=== PATIENT | male | born 1955 | race American Indian/Alaskan Native ===

== ENCOUNTER 2017-02-11 08:43 | Emergency (ER) | payer MEDICARE ==
[2017-02-11 09:01] VITALS: BP 144/73
--- NOTE | 2017-02-11 10:53 | Emergency Department Report ---
HPI - General Chief Complaint: Allergic Reaction Time Seen by Provider: 02/11/17 10:49 - HPI HPI: 62-year-old male past medical history hypertension, DVT presents with complaint of eye itching and facial itching for 3 days. ED Past Medical Hx - Past Medical History Previous Medical History?: Yes Hx Hypertension: Yes (4YRS) Hx Arthritis: Yes (HANDS) Hx HIV: No - Surgical History Past Surgical History?: Yes Additional Surgical History: Heart surgery from left rib area, Left leg surgery to remove a blood clot - Social History Smoking Status: Former Smoker Substance Use Type: Prescribed, Other - Medications Home Medications: Home Medications Medication Instructions Recorded Confirmed Last Taken Type Allopurinol [Zyloprim] 100 mg PO QDAY 12/14/14 03/10/16 03/03/16 21:00 History Atorvastatin [Lipitor Tab] 40 mg PO DAILY 12/14/14 03/10/16 03/03/16 21:00 History Clopidogrel [Plavix] 75 mg PO QDAY 12/14/14 03/10/16 03/04/16 History Gabapentin [Neurontin] 600 mg PO Q8H 12/14/14 03/10/16 03/03/16 21:00 History Hydrochlorothiazide [Hctz] 25 mg PO QDAY 12/14/14 03/10/16 Unknown History Losartan/Hydrochlorothiazide 1 each PO DAILY 12/14/14 03/10/16 03/04/16 08:00 History [Hyzaar 100-25 Tablet] Metoprolol [Lopressor] 100 mg PO BID 12/14/14 03/10/16 03/04/16 08:00 History ED Review of Systems ROS: Stated complaint: FACIAL SWELLING Other details as noted in HPI Physical Exam - Physical Exam Vital Signs: Vital Signs 02/11/17 08:54 Temperature 97.5 F L Pulse Rate 48 L Respiratory 20 Rate Blood Pressure 144/73 O2 Sat by Pulse 99 Oximetry ED Course Vital Signs 02/11/17 08:54 Temperature 97.5 F L Pulse Rate 48 L Respiratory 20 Rate Blood Pressure 144/73 O2 Sat by Pulse 99 Oximetry Critical care attestation.: If time is entered above; I have spent that time in minutes in the direct care of this critically ill patient, excluding procedure time. ED Disposition Condition: Stable Referrals: PRIMARY CARE, [Primary Care Provider] - 3-5 Days
[2017-02-11] MEDS ORDERED: PEPCID PO ONE (11:03)
[2017-02-11] MEDS ORDERED: BENADRYL PO ONE (11:04)
[2017-02-11] MEDS ORDERED: DELTASONE PO ONE (11:04)
== END 2017-02-11 12:14 | disposition home or self-care (01) ==
LOC: ED 08:43
DX: T78.49XA Other allergy, initial encounter (principal); X58.XXXA Exposure to other specified factors, initial encounter; I10 Essential (primary) hypertension; M19.90 Unspecified osteoarthritis, unspecified site; Z87.891 Personal history of nicotine dependence
CPT/HCPCS: 99282; J7512

== ENCOUNTER 2018-02-18 08:52 | Outpatient (CLI) | payer MEDICARE ==
[2018-02-18 09:38] LABS: Blood Urea Nitrogen 15 mg/dL (9-20)
--- NOTE | 2018-02-18 14:00 | Cat Scan Report ---
CT CHEST WITH CONTRAST: HISTORY: Malignant neoplasm of prostate. COMPARISON: none. TECHNIQUE: Helical CT in 1.25mm intervals following IV contrast. Sagittal and coronal reformatted images. FINDINGS: Thyroid gland: Normal. Tracheobronchial tree: Normal. Esophagus: Normal. Heart: Normal. Pericardium: Normal. Mediastinum: No mediastinal mass or adenopathy. There is mild fusiform aneurysmal dilatation of the descending aortic arch measuring up to 4.2 cm in diameter. No dissection is appreciated the central pulmonary arteries are within normal limits. Lung Anne: Unremarkable. No evidence for pulmonary mass or infiltrate. Pleural Spaces: Normal. Musculoskeletal: Mild thoracic spondylosis. No evidence for fracture or of suspicious bony lesion. 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 No evidence for metastatic disease or acute process in the chest.
--- NOTE | 2018-02-18 14:18 | Cat Scan Report ---
CT ABDOMEN PELVIS WITH CONTRAST: HISTORY: Malignant neoplasm of prostate. COMPARISON: PET/CT dated 09/08/13. TECHNIQUE: Helical CT in 1.25mm intervals following IV contrast. Sagittal and coronal reconstructions. FINDINGS: Liver: Normal. Biliary system: Normal. Pancreas: Normal. Spleen: Normal. Kidneys/ureters/bladder: The kidneys are normal size, contour and position. There is a few scattered simple cysts in both kidneys most of which are tiny. The largest cyst measures 3.3 cm near the superior pole of the right kidney. The ureters and bladder are unremarkable. Radiotherapy beads are identified in the prostate bed. Adrenal glands: Normal. Aorta: Moderate atherosclerotic disease is identified in the aorta. There is well-defined soft tissue density surrounding the aorta and parts of the IVC in the retroperitoneum. This is unchanged since 2014. The etiology of this is unclear although retroperitoneal fibrosis could be considered. There is severe atherosclerotic disease in the bilateral iliac systems and external iliac stents are present bilaterally. Stenosis of the distal external iliac arteries is suspected. Intestines: Normal. Appendix: Normal. Pelvic viscera: Normal. Ascites: None. Adenopathy: None. Musculoskeletal: Intact. Moderate thoracolumbar spondylosis is noted. No suspicious bony lesion is appreciated. IMPRESSION: No evidence for metastatic disease to the abdomen or pelvis. Chronic findings as outlined above.
--- NOTE | 2018-02-18 14:20 | Nuclear Medicine Report ---
BONE SCAN: History: Malignant neoplasm of prostate. Comparison: CT chest abdomen pelvis with contrast performed the same day. After injection of isotope, gamma camera imaging of the bony system was done. Mild degenerative uptake is noted in the bilateral shoulders, sternoclavicular joints, elbows, knees and spine. There is a solitary focus of increased radiotracer uptake overlying the distal left fibula approximately 10 cm from the ankle joint. This may be traumatic in nature. Consider correlation with x-ray. No abnormal uptake to suggest a metastatic process is identified. IMPRESSION: Negative bone scan for malignancy. Degenerative changes. Focal area of abnormal uptake overlying the left fibula which may be posttraumatic in nature. See above.
== END 2018-02-18 08:53 | disposition home or self-care (01) ==
LOC: NM 08:52
PROVIDERS: ATTEND Internal Medicine Hematology & Oncology
DX: N28.1 Cyst of kidney, acquired (principal); I25.10 Atherosclerotic heart disease of native coronary artery without angina pectoris; M47.895 Other spondylosis, thoracolumbar region; Z87.891 Personal history of nicotine dependence
CPT/HCPCS: 36415; 71260; 74177; 78306; 82565; 84520; A9503; Q9967

== ENCOUNTER 2018-11-10 07:44 | Outpatient (CLI) | payer MEDICARE ==
[2018-11-10 08:29] LABS: Blood Urea Nitrogen 9 mg/dL (9-20)
--- NOTE | 2018-11-10 22:48 | Cat Scan Report ---
PROCEDURE: CT ANGIO ABD/FEMORAL ABD AORTA TECHNIQUE: Computerized axial tomographic angiography of the abdomen and pelvis was performed after the IV injection of iodinated nonionic contrast. The image data was postprocessed using 2-dimensional multiplanar reformatted (MPR) and 3-dimensional (MIP and/or volume rendered) techniques. CT DOSE LENGTH PRODUCT: 2514.1 mGycm HISTORY: ABDOMINAL AOrtic aneurysm COMPARISONS: None . FINDINGS: Abdominal aorta is normal in caliber. There is no aneurysm or dissection. There is periaortic soft ti ssue density extending along the distal abdominal aorta to the iliac branches. This is nonspecific. T here is no evidence of active extravasation. Mesenteric arterial branches are patent. There is a stent in the left external iliac artery. 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 The deep femoral artery is patent stent provides reconstitution of t he left popliteal and infrapopliteal arteries. The right superficial femoral artery is occluded. The deep femoral artery is patent and provides reconstitution of the right popliteal and infrapopliteal a rteries. The liver, gallbladder, pancreas, spleen are unremarkable. There is a 3.7 cm cyst in the upper pole o f the right kidney. There is no bowel abnormality. There are radium seeds in the prostate. There is no acute bony abnormality. IMPRESSION: Abdominal aorta is normal in caliber. There is no aneurysm or dissection. There is periaortic soft tissue density extending along the distal abdominal aorta to the iliac branc hes. This is nonspecific. Possibilities include mass or hematoma. There is no evidence of active extr avasation. Mesenteric arterial branches are patent. There is a stent in the left external iliac artery. 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 The left deep femoral artery is patent stent provides reconstitution of the left popliteal and infrapopliteal arteries. The right superficial femoral artery is occluded. The right deep femoral artery is patent and provide s reconstitution of the right popliteal and infrapopliteal arteries. This document is electronically signed by Sonny Morris MD., Nov 10 2018 10:46:14 PM ET
== END 2018-11-10 07:45 | disposition home or self-care (01) ==
LOC: CT 07:44
PROVIDERS: ATTEND Nurse Practitioner Family
DX: I71.4 Abdominal aortic aneurysm, without rupture (principal); I70.213 Atherosclerosis of native arteries of extremities with intermittent claudication, bilateral legs; I65.29 Occlusion and stenosis of unspecified carotid artery; I71.2 Thoracic aortic aneurysm, without rupture; D48.7 Neoplasm of uncertain behavior of other specified sites; E78.00 Pure hypercholesterolemia, unspecified; I10 Essential (primary) hypertension
CPT/HCPCS: 36415; 75635; 82565; 84520; Q9967

== ENCOUNTER 2019-07-28 10:55 | Outpatient (CLI) | payer MEDICARE ==
--- NOTE | 2019-07-28 11:51 | XRay Report ---
LEFT KNEE 3 VIEWS INDICATION: PAIN. COMPARISON: None. IMPRESSION: Borderline bone mineralization. A bony protuberance measuring 2.9 x 4.2 cm projects from the distal lateral femoral metaphysis. This is consistent with an osteochondroma. The bony structure s are intact with no evidence for fracture or significant joint pathology. Trace joint effusion is n oted on the lateral image. Multiple surgical clips are noted in the medial soft tissues suggesting ve nous harvest. Signer Name: Reece Hidalgo Jr, MD Signed: 07/28/2019 11:47 AM Workstation Name: [id number]
== END 2019-07-28 10:56 | disposition home or self-care (01) ==
LOC: XRAY 10:55
DX: D16.22 Benign neoplasm of long bones of left lower limb (principal); M51.36 Other intervertebral disc degeneration, lumbar region; M25.562 Pain in left knee